=== PATIENT | female | born 1990 | race Caucasian/White ===

== ENCOUNTER 2016-07-09 07:05 | Inpatient (IN) | payer BC, OTHER ==
[~2016-07-09] VITALS: Ht 162.6 cm; Wt 59.0 kg
[~2016-07-09 07:05] MED LIST: CLON0.1T14 PO; DICY20TA28 PO; Gabapentin PO; HYDR-3895 PO; LAMO25TA5 PO; METH-33 PO; QUET200T PO
[2016-07-09] MEDS ORDERED: CLON0.1T PO (09:31)
[2016-07-09] MEDS ORDERED: QUET300T2 PO (09:45)
[2016-07-09] MEDS ORDERED: QUET50TA PO (09:45)
[2016-07-09] MEDS ORDERED: LOPERAMIDE HCL 2 MG CAPSULE PO PRN ×2 (10:00)
[2016-07-09] MEDS ORDERED: MIRALAX 17 GM POWD.PACK PO PRN (10:00)
[2016-07-09] MEDS ORDERED: THIAMINE HCL 200 MG/2 ML VIAL IM ONE (10:00)
[2016-07-09] MEDS ORDERED: LORAZEPAM 1 MG TABLET PO PRN (10:00)
[2016-07-09] MEDS ORDERED: LORAZEPAM 2 MG/1 ML VIAL IM PRN (10:00)
[2016-07-09] MEDS ORDERED: ONDANSETRON 4 MG/2 ML VIAL IM PRN (10:00)
[2016-07-09] MEDS ORDERED: DICYCLOMINE HCL 20 MG TABLET PO PRN (10:00)
[2016-07-09] MEDS ORDERED: MAG HYDROX/AL HYDROX/SIMETH 30 ML LIQUID UDC PO PRN (10:00)
[2016-07-09] MEDS ORDERED: ACETAMINOPHEN 325 MG TABLET PO PRN (10:00)
[2016-07-09] MEDS ORDERED: MAGNESIUM HYDROXIDE 30 ML LIQUID UDC PO PRN (10:00)
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
[2016-07-09 10:40] LABS: *URINE HCG, QUAL NEGATIVE (NEGATIVE)
[2016-07-09 10:51] LABS: *AMPHETAMINE, URINE NEGATIVE (NEGATIVE); *BARBITURATE, URINE NEGATIVE (NEGATIVE); *CANNABINOID, URINE POSITIVE (NEGATIVE); *COCCAINE, URINE POSITIVE (NEGATIVE); *OPIATE, URINE POSITIVE (NEGATIVE); *PHENCYCLIDINE SCREEN,URINE NEGATIVE (NEGATIVE)
[2016-07-09] MEDS: LORAZEPAM 1 MG TABLET PO PRN ×2 (10:53→14:24)
[2016-07-09] MEDS: IBUPROFEN 600 MG TABLET PO PRN (10:53)
[2016-07-09] MEDS: CLONIDINE HCL 0.1 MG TABLET PO PRN (10:54)
[2016-07-09] MEDS: BUPRENORPHINE HCL 2 MG TAB.SUBL SL PRN ×2 (11:13→18:05)
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
[2016-07-09 12:00] VITALS: BP 93/60
--- NOTE | 2016-07-09 12:25 | NUR ---
PRN ATIVAN EFFECTIVE COWS WENT FROM 12 TO 6 AND CIWA FROM 8 TO 4. PT STATES SHE FEELS BETTER.
[2016-07-09] MEDS: GABAPENTIN 300 MG CAPSULE PO SCH ×2 (14:24→20:42)
--- NOTE | 2016-07-09 14:25 | NUR ---
PRN ATIVAN 1 MG PO GIVEN FOR REPORTED ANXIETY,RESTLESSNESS AND " THAT CRAWLING SKIN FEELING" PT STATES. CIWA 7. WILL MONITOR EFFECTIVENESS.
[2016-07-09] MEDS ORDERED: Medication Not On Formulary EA ([Gabapentin] (Neurontin) 600 MG) PO SCH (15:00)
--- NOTE | 2016-07-09 15:25 | NUR ---
PRN MEDICATION EFFECTIVE. CIWA 4. SHE STATES SHE FEELS BETTER AND WANTS TO LAY DOWN.
[2016-07-09 16:00] VITALS: BP 100/62
[2016-07-09 16:08] LABS: BASOPHILS # (AUTO) 0.1 K/uL (0.0-8.0); BASOPHILS % (AUTO) 0.7 % (0.0-2.0); EOSINOPHILS # (AUTO) 0.5 K/uL (0.0-0.7); HEMATOCRIT 34.5 % (37-47); LYMPHOCYTES # (AUTO) 2.9 K/UL (0.8-4.8); LYMPHOCYTES % (AUTO) 25.5 % (20.5-51.5); MEAN CORPUSCULAR HEMOGLOBIN 26.3 UUG (27.0-31.0); MEAN CORPUSCULAR HGB CONC 32 g/dL (32.0-37.0); MEAN CORPUSCULAR VOLUME 82.7 FL (81.0-99.0); MONOCYTES # (AUTO) 0.9 K/UL (0.1-1.30); MONOCYTES % (AUTO) 7.6 % (0.0-11.0); NEUTROPHILS % (AUTO) 62.2 % (38.5-71.5); PLATELET COUNT (AUTO) 231 K/UL (150-450); RED BLOOD CELL COUNT(AUTO) 4.17 MIL/UL (4.2-5.4); RED CELL DISTRIBUTION WIDTH 17.4 % (11.5-14.5); WHITE BLOOD COUNT (AUTO) 11.4 K/UL (4.0-11.2)
[2016-07-09 16:09] LABS: ALANINE AMINOTRANSFERASE 12 U/L (14-59); ALBUMIN 3.6 g/dL (3.4-5.0); ALKALINE PHOSPHATASE 87 U/L (50-136); AMYLASE 458 U/L (25-115); ASPARTATE AMINOTRANSFERASE 16 U/L (15-37); BILIRUBIN,TOTAL 0.2 mg/dL (0.2-1.0); CALCIUM 8.5 mg/dL (8.5-10.1); CARBON DIOXIDE 28 mmol/L (21-32); CHLORIDE 102 mmol/L (98-107); GFR 68 mL/min (>60); GLUCOSE 100 mg/dL (74-106); LIPASE 163 U/L (73-393); MAGNESIUM 2.3 mg/dL (1.8-2.4); POTASSIUM 3.7 mmol/L (3.5-5.1); SODIUM SERUM 137 mmol/L (136-145); UREA NITROGEN, BLOOD 10 mg/dL (7-18)
[2016-07-09 16:12] LABS: ETHANOL < 3 MG/DL (0-0)
[2016-07-09 16:47] LABS: THYROID STIMULATING HORMONE 0.611 mIU/mL (0.358-3.740)
[2016-07-09] MEDS: ONDANSETRON ODT 4 MG TAB.RAPDIS SL PRN (17:55)
--- NOTE | 2016-07-09 17:57 | NUR ---
PRN ZOFRAN 4 MG SL GIVEN FOR REPORTED NAUSEA.
--- NOTE | 2016-07-09 18:15 | NUR ---
PRN SUBUTEX GIVEN. COWS 8. SHE REPORTS CHILLS,BODY ACHES AND ANXIETY.
[2016-07-09 18:18] LABS: HIV-1 p24 ANTIGEN NON REACTIVE (NONREACTIVE); HIV-1/2 ANTIBODY NON REACTIVE (NONREACTIVE)
--- NOTE | 2016-07-09 18:45 | NUR ---
SUBUTEX EFFECTIVE COWS 5. SHE STATES SHE FEELS BETTER.
[2016-07-09 18:50] LABS: ANISOCYTOSIS 1+
--- NOTE | 2016-07-09 19:24 | NUR ---
END OF SHIFT; PT IS IN BED WATCHING TV. SHE STATES ZOFRAN,SUBUTEX AND ATIVAN WERE EFFECTIVE IN REDUCING S/S OF W/D AND SHE FEELS A LITTLE BETTER. ENCOURAGED PT TO INCREASE FLUIDS. PRNS AVAILABLE TO MANAGE S/S OF W/D. WILL PASS SHIFT REPORT TO ONCOMING NIGHT NURSE.
[2016-07-09 20:00] VITALS: BP 101/62
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
--- NOTE | 2016-07-09 20:30 | NUR ---
Two [employer] officers in to see patient.
[2016-07-09] MEDS: LAMOTRIGINE 25 MG TABLET PO SCH (20:41)
[2016-07-09] MEDS: QUETIAPINE FUMARATE 200 MG TABLET PO SCH (20:43)
[2016-07-09] MEDS ORDERED: LORAZEPAM 1 MG TABLET PO SCH (21:00)
[2016-07-09] MEDS ORDERED: BUPRENORPHINE HCL 2 MG TAB.SUBL SL SCH (21:00)
[2016-07-09] MEDS: METHOCARBAMOL 750 MG TABLET PO PRN (21:02)
--- NOTE | 2016-07-09 21:02 | NUR ---
PRN MEDICATION: Prn Robaxin 750 mg p.o. given per request for her c/o " body muscle aches all over, easily a 9"
--- NOTE | 2016-07-09 22:02 | NUR ---
REASSESSMENT PRN MEDICATION: Patient is sleeping soundly in semi-bettencourt's position with eyes closed and deep, regular, unlabored respirations noted at 12.
[2016-07-10] VITALS: BP 103/66
[2016-07-10] MEDS: IBUPROFEN 600 MG TABLET PO PRN (02:24)
[2016-07-10] MEDS: CLONIDINE HCL 0.1 MG TABLET PO PRN ×2 (02:24→23:50)
[2016-07-10] MEDS: diphenhydrAMINE 50 MG CAPSULE PO PRN ×2 (02:24→23:50)
--- NOTE | 2016-07-10 02:24 | NUR ---
PRN MEDICATIONS: Prn Motrin 600mg p.o. given per c/o back and body aches 7/10 pain scale. Prn Catapres 0.1 mg p.o. given per c/o feeling ' shakey all over', feeling increasing anxiety and agitation and 'starting to feel hot". Temp 97.8 orally, B/P 116/76, COWS 5, CIWA 4. Prn Benadryl 50 mg p.o. given per request for sleep medication. Patient states, " I'm going to need something to help me to get back to sleep, or I'll be up and ready to jump out of my skin, if I don't".
[2016-07-10] MEDS: HYDROXYZINE PAMOATE 25 MG CAPSULE PO PRN (02:25)
--- NOTE | 2016-07-10 02:25 | NUR ---
PRN MEDICATION: Prn Vistaril 50 mg p.o. given for c/o anxiety. Patient states, " I'm not really sleeping that well either. I keep on having nightmares".
--- NOTE | 2016-07-10 03:25 | NUR ---
REASSESSMENT PRN MEDICATIONS: Patient is sleeping soundly in low semi-bettencourt's position of comfort, with eyes closed and deep, regular, unlabored respirations noted at 12.
[2016-07-10 04:00] VITALS: BP 101/62
--- NOTE | 2016-07-10 06:30 | NUR ---
0630 Patient slept a total of 8 hours and she had 2 voids and no stools. Total intake was 1,066 ml p.o. Prn medications given noted separately per floor protocol. V/SS, afebrile, COWS 3, CIWA 2 at 0400. Patient is presently sleeping soundly with eyes closed and respirations deep, quiet, even, unlabored at 12. Patient is overall anxious, guarded and emotionally labile when awake, however she is very responsive to calm reassurances, positive encouragement and simple explanations given to her, as needed.
--- NOTE | 2016-07-10 07:30 | NUR ---
START OF SHIFT Rcvd endorsement from night nurse, client is in bed, she sound asleep, asey to arouse, RR 17 even, nonlabored. PRN medications given noted separately per floor protocol. COWS 3, CIWA 2 at 0400. Client is a 25 y/o female admitted to [facility] on 07/09/16 for medically-supervised withdrawal from benzodiazepine, alcohol and opioid withdrawal. She is on taper Ativan and Subutex and helping her manage her withdrawal symptoms. Seizure precautions. Side rails x 2 up/padded. Call light within reach. Will continue plan of care.
[2016-07-10 08:15] VITALS: BP 100/61
[2016-07-10] MEDS: LORAZEPAM 1 MG TABLET PO SCH ×3 (08:18→21:27)
[2016-07-10] MEDS: LAMOTRIGINE 25 MG TABLET PO SCH ×2 (08:18→21:28)
[2016-07-10] MEDS: THIAMINE HCL 100 MG TABLET PO SCH (08:18)
[2016-07-10] MEDS: DOCUSATE SODIUM 250 MG CAPSULE PO SCH (08:18)
[2016-07-10] MEDS: FOLIC ACID 1 MG TABLET PO SCH (08:18)
[2016-07-10] MEDS: MULTIVITAMINS,THERAPEUTIC TABLET PO SCH (08:19)
[2016-07-10] MEDS: GABAPENTIN 300 MG CAPSULE PO SCH ×3 (08:19→21:28)
[2016-07-10] MEDS: BUPRENORPHINE HCL 2 MG TAB.SUBL SL SCH ×3 (08:21→21:30)
[2016-07-10] MEDS ORDERED: TUBERCULIN,PURIF.PROT.DERIV. 5 TU/0.1 ML TEST ID ONE (09:00)
--- NOTE | 2016-07-10 09:42 | NUR ---
TB TEST ADMINISTERED TO LEFT F/A, CLIENT TOLERATED WELL.
[2016-07-10 12:07] LABS: HCV AB <0.1 s/co ratio (0.0-0.9); HEPATITIS B CORE AB, IgM Negative (Negative); HEPATITIS B SURFACE AG Negative (Negative)
[2016-07-10 12:30] VITALS: BP 118/72
--- NOTE | 2016-07-10 16:39 | NUR ---
Therapist encouraged client to attend group therapy so that she could receive ongoing support for her anxiety. Client expressed that she would consider going.
[2016-07-10 17:31] VITALS: BP 109/65
[2016-07-10] MEDS: KETOROLAC TROMETHAMINE 30 MG INJ IM PRN (17:42)
--- NOTE | 2016-07-10 17:42 | NUR ---
PRN TORADOL INJ 30MG Client report generalized pain of 9/10, manifested by irritability, grimacing. Call light within reach.
--- NOTE | 2016-07-10 18:42 | NUR ---
REASSESSMENT PRN TORADOL INJ 30MG Client report relief from generalized pain of 0/10. Call light within reach.
[2016-07-10] MEDS ORDERED: IBUPROFEN 800 MG TABLET PO PRN (18:45)
[2016-07-10] MEDS: ONDANSETRON ODT 4 MG TAB.RAPDIS SL PRN (18:57)
--- NOTE | 2016-07-10 18:57 | NUR ---
NICHOLAS Colidnres 4mf SL Client reports intermittent nausea, no episodes of emesis. Will endorse to incoming nurse. Call light within reach.
--- NOTE | 2016-07-10 19:15 | NUR ---
END OF SHIFT Endorsed to incoming nurse, client is at the patio, smoking a cigarette. PRN medications Toradol for generalized pain 9/10 given, noted effective. Zofran 4mg SL for nausea, incoming nurse to reassess. COWS 9, CIWA 7 at 1600 Client is a 25 y/o female admitted to [facility] on 07/09/16 for medically-supervised withdrawal from benzodiazepine, alcohol and opioid withdrawal. She is on taper Ativan and Subutex and helping her manage her withdrawal symptoms. Seizure precautions. Side rails x 2 up/padded. Call light within reach. Will continue plan of care.
--- NOTE | 2016-07-10 19:57 | NUR ---
REASSESSMENT PRN ZOFRAN 4mg SL: Patient reports that her feeling of nausea has been relieved 'for now'.
[2016-07-10 20:00] VITALS: BP 100/52
--- NOTE | 2016-07-10 20:00 | NUR ---
2000 Patient received awake, alert and in patient advocate, John's office, to make a phone call to her mother.
--- NOTE | 2016-07-10 20:20 | NUR ---
2020 Patient back into her room # 327 from making phone call to her mother, which she states was upsetting, since her mother did not take patient's phone call. Patient states, " This is the first time that my mother has turned away from me. She has been my rock and now I feel like I don't have any support". Patient allowed and encouraged to ventilate her feelings, which she did at length and calm reassurances and positive encouragement then given to her. Patient is oriented to person, place, day, date, time and her personal situation. Patient's color is pink and her skin is warm, dry and intact. Patient states that she has been eating her regular diet trays and taking fluids ad ajit, with only occasional c/o nausea, which she states, may not always be related to food. Patient states further that she has been attending [facility] groups and participating also. Vital signs are: 98.2-68-18 100/52, O2 Sat 98%, COWS 8, CIWA 7. Patient is cooperative with nurse assess with some prompting and redirection, and her mood/affect is anxious, slightly agitated and overall emotionally labile. Patient moves all her extremities fully WNL and her gait is steady when she is ambulating. Patient offers no c/o any pain at this time and she voices no requests for anything. Patient was admitted on 07/09/16 for Roxicodone, Klonopin and Wine withdrawal and she is currently on a 5-Day Ativan medication taper and a 5-Day Subutex medication taper per D.O, which she is apparently tolerating well so far. Bed is locked and in lowest position, bed rails are up X 1 and call light within patient's easy reach.
[2016-07-10] MEDS: FAMOTIDINE 20 MG TABLET PO SCH (21:28)
[2016-07-10] MEDS: QUETIAPINE FUMARATE 200 MG TABLET PO SCH (21:29)
[2016-07-10] MEDS: METHOCARBAMOL 750 MG TABLET PO PRN (23:50)
--- NOTE | 2016-07-10 23:50 | NUR ---
PRN MEDICATIONS: Prn Catapres 0.1 mg p.o. given for c/o 'feeling hot, achey all over my body, shakey and very anxious'. Patient also noted to be somewhat agitated. Prn Robaxin 750 mg p.o. given per request for c/o, ' really bad body muscle aches, mostly on my neck and down my back', 9/10 pain scale. Prn Benadryl 50 mg p.o. given per request for sleep medication. Patient states, " I wanted to get two". Explanation given to patient that she may have 1 tab Benadryl 50 mg prn per MD order, and not two tabs. Patient then states, " Oh, okay".
[2016-07-11] VITALS: BP 116/68
--- NOTE | 2016-07-11 00:50 | NUR ---
REASSESSMENT PRN MEDICATIONS: Patient is awake and ambulating back and forth to the kitchen from her room and to the hospital patio. Patient is behaving in a somewhat manic, meandering manner, having disjointed conversations with various staff and patients, smoking frequently on the patio and firmly resisting all attempts by staff to redirect her to her room for sleep. Patient looks puzzled when nurse asked her if prn Robaxin medication given for her back muscle aches was effective and she did not give an answer.
--- NOTE | 2016-07-11 03:00 | NUR ---
Patient only now has fallen asleep in her bed. From 49, until this time, patient has firmly, with agitation, refused to go to her room for sleep, instead she has continued to go back and forth form her room to the kitchen and back and forth from her room to the hospital patio to smoke. Patient's manner has been both manic and drowsy during this time period. Patient observed nodding off several times and walking into kitchen wall at least once. She also came to nurse's station and told charge nurse, in weepy manner, " I don't know where my room is". Patient repeatedly said in agitated manner, " What's going on here?! How come I always to wait for a tech to take me downstairs. The nurse could take me down or let me know why not and I need to make another phone call and why can't I do it?!" Patient observed being unable at times to focus her eyes straight or keep them open. Patient also observed making absent movements with her hair and to her scalp. Patient's room was searched by staff and small, neon green clinical education assistant was found in patient's clothes. Patient hostile and resisted any attempts by various staff and nurse to redirect her behavior during this time, 49 until now.
--- NOTE | 2016-07-11 04:00 | NUR ---
Patient refused to be awakened for V/S to be done at this time.
--- NOTE | 2016-07-11 06:30 | NUR ---
0630 Patient had a very disruptive night, sleeping only 3 hours. Total intake was 1,318 ml p.o. and she had 3 voids and 1 stools. V/SS, COWS at 0000 9 and CIWA 7. Prn medications given noted separately per floor protocol. Patient is very needy, frequently demanding and almost constantly drug-seeking when awake this shift. Patient is presently sleeping with eyes closed and respirations quiet, regular and unlabored at 12.
--- NOTE | 2016-07-11 07:30 | NUR ---
START OF SHIFT Rcvd endorsement from night nurse, client is at nurse station requesting medication when asked what are her symptoms, she stated "I need all my PRN medications, I don't feel well." She denies any N/V/D or SHAFER at this time. Encourage to increase fluid intake to facilitate detox. Encouraged group attendance for skills to maintain sobriety. Last COWS 9, CIWA 7 at 2400. Client is a 25 y/o female admitted to [facility] on 07/09/16 for medically-supervised withdrawal from benzodiazepine, alcohol and opioid withdrawal. She is on taper Ativan and Subutex and helping her manage her withdrawal symptoms. Seizure precautions. Side rails x 2 up/padded. Call light within reach. Will continue plan of care.
[2016-07-11 07:33] LABS: CALCIUM 8.6 mg/dL (8.5-10.1); CREATININE 0.9 mg/dL (0.6-1.3); POTASSIUM 4.6 mmol/L (3.5-5.1)
[2016-07-11 07:58] LABS: BASOPHILS # (AUTO) 0.1 K/uL (0.0-8.0); BASOPHILS % (AUTO) 0.5 % (0.0-2.0); EOSINOPHILS # (AUTO) 0.8 K/uL (0.0-0.7); EOSINOPHILS % (AUTO) 5.9 % (0.0-7.0); HEMATOCRIT 33.7 % (37-47); HEMOGLOBIN 10.8 G/DL (12.0-16.0); LYMPHOCYTES # (AUTO) 2.3 K/UL (0.8-4.8); LYMPHOCYTES % (AUTO) 16.5 % (20.5-51.5); MEAN CORPUSCULAR HEMOGLOBIN 26.5 UUG (27.0-31.0); MEAN CORPUSCULAR HGB CONC 32 g/dL (32.0-37.0); MEAN CORPUSCULAR VOLUME 83.2 FL (81.0-99.0); MONOCYTES # (AUTO) 0.8 K/UL (0.1-1.30); MONOCYTES % (AUTO) 5.9 % (0.0-11.0); NEUTROPHILS # (AUTO) 9.9 K/UL (1.8-8.9); NEUTROPHILS % (AUTO) 71.2 % (38.5-71.5); PLATELET COUNT (AUTO) 192 K/UL (150-450); RED BLOOD CELL COUNT(AUTO) 4.05 MIL/UL (4.2-5.4); RED CELL DISTRIBUTION WIDTH 17.1 % (11.5-14.5); WHITE BLOOD COUNT (AUTO) 13.9 K/UL (4.0-11.2)
[2016-07-11] MEDS: GABAPENTIN 300 MG CAPSULE PO SCH ×2 (08:15→14:40)
[2016-07-11] MEDS: DOCUSATE SODIUM 250 MG CAPSULE PO SCH (08:15)
[2016-07-11] MEDS: FOLIC ACID 1 MG TABLET PO SCH (08:16)
[2016-07-11] MEDS: LORAZEPAM 1 MG TABLET PO SCH ×2 (08:16→12:33)
[2016-07-11] MEDS: THIAMINE HCL 100 MG TABLET PO SCH (08:16)
[2016-07-11] MEDS: MULTIVITAMINS,THERAPEUTIC TABLET PO SCH (08:16)
[2016-07-11] MEDS: FAMOTIDINE 20 MG TABLET PO SCH (08:16)
[2016-07-11] MEDS: LAMOTRIGINE 25 MG TABLET PO SCH (08:16)
[2016-07-11 08:31] VITALS: BP 109/69
[2016-07-11] MEDS ORDERED: LIDOCAINE 5% PATCH TD SCH (09:00)
[2016-07-11] MEDS ORDERED: BUPRENORPHINE HCL 2 MG TAB.SUBL SL SCH ×2 (09:00→15:00)
[2016-07-11] MEDS: HYDROXYZINE PAMOATE 25 MG CAPSULE PO PRN (09:19)
--- NOTE | 2016-07-11 09:19 | NUR ---
PRN Vistaril 50mg Client reports anxiety, manifested by inability to stay still and P 103. Vistaril 50mg PO administered. Breathing techniques for relaxation instituted, she needs reinforcement. Call light within reach.
[2016-07-11] MEDS ORDERED: IBUPROFEN 600 MG TABLET PO PRN (10:00)
--- NOTE | 2016-07-11 10:19 | NUR ---
Reassessment PRN Vistaril 50mg Client reports relief from anxiety. Vistaril 50mg effective. Call light within reach.
[2016-07-11] MEDS: KETOROLAC TROMETHAMINE 30 MG INJ IM PRN (10:31)
--- NOTE | 2016-07-11 10:31 | NUR ---
PRN TORADOL INJ 30MG Client report generalized pain of 8/10, manifested by irritability, grimacing. Call light within reach.
--- NOTE | 2016-07-11 11:31 | NUR ---
Reassessment PRN TORADOL INJ 30MG Client report relief from generalized pain of 0/10. Call light within reach.
[2016-07-11 12:55] VITALS: BP 106/73
--- NOTE | 2016-07-11 15:45 | NUR ---
AMA NOTE Client stated the she was not ready and wanted to use. Client was educated about the risks and consequences of leaving AMA, client verbalized understanding but still requested to leave. multiple staff members spoke with client without any success. VS are WNL, client denies any suicidal/homicidal ideations, skin intact, Dr. Smith notified. Client was given a list of community resources in case she is in need of help. All belongings and medication returned to client, she left the unit at 1545.
[2016-07-12] MEDS ORDERED: BUPRENORPHINE HCL 2 MG TAB.SUBL SL SCH (09:00)
[2016-07-12] MEDS ORDERED: LORAZEPAM 1 MG TABLET PO SCH (09:00)
[2016-07-13] MEDS ORDERED: BUPRENORPHINE HCL 2 MG TAB.SUBL SL SCH (09:00)
[2016-07-13] MEDS ORDERED: LORAZEPAM 1 MG TABLET PO SCH (09:00)
== END 2016-07-11 15:45 | disposition left against medical advice (07) | DRG 894 ==
LOC: SRC 09:11
PROVIDERS: ADMIT Internal Medicine; ATTEND Internal Medicine
DX: F10.230 Alcohol dependence with withdrawal, uncomplicated (principal); F13.230 Sedative, hypnotic or anxiolytic dependence with withdrawal, uncomplicated; Y90.9 Presence of alcohol in blood, level not specified; Z59.0 Homelessness; F31.9 Bipolar disorder, unspecified; F41.9 Anxiety disorder, unspecified; D72.829 Elevated white blood cell count, unspecified; F17.210 Nicotine dependence, cigarettes, uncomplicated; R94.8 Abnormal results of function studies of other organs and systems; F11.23 Opioid dependence with withdrawal
CPT/HCPCS: 36415; 70030-TC; 80307; 80346; 80349; 80353; 80361; 83690; 83735; 84443; 84703; 85025; 86592; 86705; 86803; 87340; 87806; A4663; G6040-TC; J1885; Q0162; Q0163